=== PATIENT | female | born 1995 | race Caucasian/White ===

== ENCOUNTER 2018-10-22 12:50 | Emergency (ER) | payer OTHER ==
[~2018-10-22] VITALS: Ht 165.1 cm; Wt 62.0 kg
[2018-10-22] MEDS ORDERED: IBUPROFEN 600MG TABLET PO ONE (15:45)
[2018-10-22 17:15] VITALS: BP 121/79
== END 2018-10-22 17:25 | disposition home or self-care (01) ==
LOC: ER 12:50
DX: S93.401A Sprain of unspecified ligament of right ankle, initial encounter (principal); Y93.41 Activity, dancing; Y92.89 Other specified places as the place of occurrence of the external cause
CPT/HCPCS: 73610; 73630; 81025; 99283